=== PATIENT | male | born 2000 | race Caucasian/White ===

== ENCOUNTER 2021-11-24 20:00 | Emergency (ER) | payer OTHER ==
[2021-11-24 20:11] VITALS: BP 145/62
--- NOTE | 2021-11-24 20:38 | ED Physician Documentation ---
PD HPI HEAD INJURY - Stated complaint Stated Complaint: CHIN SPLIT OPEN - Chief complaint Chief Complaint: Laceration - History obtained from History obtained from: Patient - Additional information Additional information: Got hit with a softball while playing softball this evening and has a laceration on the chin. No other injuries. 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 Review of Systems Constitutional: reports: Reviewed and negative Eyes: reports: Reviewed and negative Ears: reports: Reviewed and negative Nose: reports: Reviewed and negative PD PAST MEDICAL HISTORY - Past Medical History Past Medical History: No - Allergies Allergies/Adverse Reactions: Allergies Allergy/AdvReac Type Severity Reaction Status Date / Time No Known Drug Allergies Allergy Verified 11/24/21 20:11 - Social History Does the pt smoke?: No Smoking Status: Never smoker PD ED PE NORMAL - Vitals Vital signs reviewed: Yes - General General: Alert and oriented X 3, No acute distress - HEENT HEENT: Other (2.5 cm slightly jagged but horizontal laceration on the lower part of the chin. No facial bony tenderness. No dental injury.) - Neck Neck: Supple, no meningeal sign, No bony TTP - Neuro Neuro: Alert and oriented X 3, Normal speech Results - Vitals Vitals: Vital Signs - 24 hr 11/24/21 20:08 Temperature 36.3 C L Heart Rate 76 Respiratory 16 Rate Blood Pressure 145/62 H O2 Saturation 100 Oxygen O2 Source Room air Procedures - Laceration (location) Chin Length in cm: 2.5 Wound type: Into subcut fat Neurovascular status: Sensory intact Tendon involvement: Tendon intact Anesthesia: Lidocaine 1% with epi Wound preparation: Irrigated copiously NS Skin layer closure: Nylon, Interrupted, Size #-0 - enter number (5-0), Sutures - enter # (6) Other: Tetanus UTD Departure - Departure Disposition: 01 Home, Self Care Clinical Impression: Chin laceration Condition: Good Record reviewed to determine appropriate education?: Yes Instructions: ED Laceration Facial Sutr Tape Comments: Come back for any signs of infection which would include: Redness, swelling, drainage, increased pain, or fevers. You can wash it soap and water. Keep it covered and moist with bacitracin ointment Or Vaseline which is available over the counter; avoid neosporin. Follow-up with your physician in 6-7 days for suture removal. Forms: Activity restrictions
== END 2021-11-24 20:50 | disposition home or self-care (01) ==
LOC: ED 20:00
DX: S01.81XA Laceration without foreign body of other part of head, initial encounter (principal); W21.07XA Struck by softball, initial encounter; Y93.64 Activity, baseball; Y99.8 Other external cause status
CPT/HCPCS: 12011; 99282